=== PATIENT | male | born 1960 | race Two or more races ===

== ENCOUNTER 2019-02-25 11:52 | Day surgery (SDC) | payer BC ==
[2019-02-25] MEDS ORDERED: PROPOFOL 20 ML (14:06)
== END 2019-02-25 15:56 | disposition home or self-care (01) ==
LOC: GIL 11:52
DX: Z12.11 Encounter for screening for malignant neoplasm of colon (principal); D12.4 Benign neoplasm of descending colon; D12.5 Benign neoplasm of sigmoid colon; K64.8 Other hemorrhoids
CPT/HCPCS: 45380; 88305